=== PATIENT | female | born 1935 | race Caucasian/White ===

== ENCOUNTER 2020-07-12 10:03 | Outpatient (CLI) | payer MEDICARE, OTHER | END 2020-07-12 10:04 | disposition home or self-care (01) | LOC: BICMAMMO 10:03 | PROVIDERS: ATTEND Registered Nurse | DX: M81.0 Age-related osteoporosis without current pathological fracture (principal); Z78.0 Asymptomatic menopausal state | CPT/HCPCS: 77080 ==

== ENCOUNTER 2020-10-26 10:56 | Outpatient (CLI) | payer MEDICARE, OTHER | END 2020-10-26 10:57 | disposition home or self-care (01) | LOC: BICMAMMO 10:56 | PROVIDERS: ATTEND Registered Nurse | DX: Z12.31 Encounter for screening mammogram for malignant neoplasm of breast (principal); Z91.89 Other specified personal risk factors, not elsewhere classified; Z80.3 Family history of malignant neoplasm of breast | CPT/HCPCS: 77063; 77067 ==

== ENCOUNTER 2021-05-03 12:29 | Outpatient (CLI) | payer MEDICARE, OTHER | END 2021-05-03 12:30 | disposition home or self-care (01) | LOC: BICCT 12:29 | PROVIDERS: ATTEND Registered Nurse | DX: R10.2 Pelvic and perineal pain (principal); N39.0 Urinary tract infection, site not specified; N28.89 Other specified disorders of kidney and ureter | CPT/HCPCS: 74176 ==

== ENCOUNTER 2021-11-09 10:35 | Outpatient (CLI) | payer MEDICARE, OTHER | END 2021-11-09 10:36 | disposition home or self-care (01) | LOC: BICMAMMO 10:35 | PROVIDERS: ATTEND Registered Nurse | DX: Z12.31 Encounter for screening mammogram for malignant neoplasm of breast (principal); Z80.3 Family history of malignant neoplasm of breast; Z91.89 Other specified personal risk factors, not elsewhere classified | CPT/HCPCS: 77063; 77067 ==

== ENCOUNTER 2022-11-30 08:22 | Outpatient (CLI) | payer MEDICARE, OTHER | END 2022-11-30 08:23 | disposition home or self-care (01) | LOC: BICMAMMO 08:22 | PROVIDERS: ATTEND Registered Nurse | DX: Z12.31 Encounter for screening mammogram for malignant neoplasm of breast (principal); Z80.3 Family history of malignant neoplasm of breast; Z91.89 Other specified personal risk factors, not elsewhere classified | CPT/HCPCS: 77063; 77067 ==

== ENCOUNTER 2023-07-02 11:14 | Outpatient (CLI) | payer MEDICARE, OTHER | END 2023-07-02 11:15 | disposition home or self-care (01) | LOC: ULT 11:14 | PROVIDERS: ATTEND Registered Nurse | DX: I77.89 Other specified disorders of arteries and arterioles (principal); E04.1 Nontoxic single thyroid nodule | CPT/HCPCS: 76536 ==

== ENCOUNTER 2023-07-13 12:05 | Day surgery (SDC) | payer MEDICARE, OTHER ==
[2023-07-13] MEDS ORDERED: Lidocaine 1% PF 5 ML VIAL ONE (12:44)
== END 2023-07-13 13:15 | disposition home or self-care (01) ==
LOC: ULT 12:05
PROVIDERS: ATTEND Registered Nurse
DX: E04.1 Nontoxic single thyroid nodule (principal); Z53.9 Procedure and treatment not carried out, unspecified reason

== ENCOUNTER 2023-12-03 09:37 | Outpatient (CLI) | payer MEDICARE, OTHER | END 2023-12-03 09:38 | disposition home or self-care (01) | LOC: BICMAMMO 09:37 | PROVIDERS: ATTEND Registered Nurse | DX: Z12.31 Encounter for screening mammogram for malignant neoplasm of breast (principal); Z80.3 Family history of malignant neoplasm of breast; Z91.89 Other specified personal risk factors, not elsewhere classified | CPT/HCPCS: 77063; 77067 ==

== ENCOUNTER 2024-02-11 13:18 | Outpatient (CLI) | payer MEDICARE, OTHER | END 2024-02-11 13:19 | disposition home or self-care (01) | LOC: BICULT 13:18 | PROVIDERS: ATTEND Registered Nurse | DX: E04.2 Nontoxic multinodular goiter (principal) | CPT/HCPCS: 76536 ==